=== PATIENT | male | born 1995 | race Caucasian/White ===

== ENCOUNTER 2016-05-07 19:59 | Emergency (ER) | payer OTHER ==
[2016-05-07 20:13] VITALS: BP 161/73; PULSE 94; TEMP 97.6; BMI 44.6
--- NOTE | 2016-05-07 21:55 | PDOC ---
[id number] 4d EAR PROBLEM Time Seen by Provider: 05/07/16 21:24 History Source: Patient Exam Limitations: No Limitations - History of Present Illness Initial Comments: 05/07/16 21:50 Chief complaint: Right sided throat pain with right ear pain today with chills, fever History of present illness: Patient is a 20-year-old male with no significant medical problems here today complaining of right-sided throat pain that radiates to his right ear. Patient denies any difficulty swallowing or breathing. Patient did not have an influenza vaccine. Patient also complaining of chills with fever today. Patient denies any cough, vomiting, diarrhea. She has not had any recent travel or sick contacts that he knows of. Timing/Duration: intermittent Severity: moderate Associated Symptoms: reports: fever/chills, other (sore throat rt. sided radiates to rt. ear) Past History - Past Medical History Allergies/Adverse Reactions: Allergies Allergy/AdvReac Type Severity Reaction Status Date / Time No Known Allergies Allergy Verified 05/07/16 20:10 Home Medications: Ambulatory Orders Amoxicillin - [Amoxicillin 875mg Tablet -] 875 mg PO BID #14 tab 05/07/16 - Psycho/Social/Smoking Cessation Hx Suicidal Ideation: No Smoking History: Never smoked Have you smoked in the past 12 months: No Number of Cigarettes Smoked Daily: 0 Information on smoking cessation initiated: No Hx Alcohol Use: No Drug/Substance Use Hx: No Review of Systems - Review of Systems Able to Perform ROS?: Yes Constitutional: Yes: Fever HEENTM: Yes: Ear Pain (rt), Throat Pain Respiratory: No: Symptoms reported Cardiac (ROS): No: Symptoms Reported ABD/GI: No: Symptoms Reported : No: Symptoms Reported Musculoskeletal: No: Symptoms Reported Integumentary: No: Symptoms Reported Neurological: No: Symptoms reported *Physical Exam - Vital Signs Last Vital Signs Temp Pulse Resp BP Pulse Ox 97.6 F 94 H 16 161/73 97 05/07/16 20:11 05/07/16 20:11 05/07/16 20:11 05/07/16 20:11 05/07/16 20:11 - Physical Exam General Appearance: Yes: Appropriately Dressed HEENT: positive: TMs Normal, Pharyngeal Erythema, Tonsillar Erythema (right ), TM Erythema (rt. ). negative: Tonsillar Exudate, Nasal Congestion, Rhinorrhea, Sinus Tenderness, Hearing Decreased Neck: positive: Lymphadenopathy (R). negative: Lymphadenopathy (L) Respiratory/Chest: positive: Lungs Clear, Normal Breath Sounds. negative: Chest Tender, Respiratory Distress Cardiovascular: positive: Regular Rhythm, Regular Rate, S1, S2 Integumentary: positive: Normal Color Neurologic: positive: Alert Medical Decision Making - Medical Decision Making 05/07/16 21:54 Patient is a 20-year-old male with no significant medical problems here today complaining of right-sided throat pain that radiates to his right ear. Patient denies any difficulty swallowing or breathing. Patient did not have an influenza vaccine. Patient also complaining of chills with fever today. Patient denies any cough, vomiting, diarrhea. He has not had any recent travel or sick contacts that he knows of. tonsillitis right sided pLAN: Amoxicillin 875 mg bid for 7 days follow up with ENT if briones 05/07/16 23:19 *DC/Admit/Observation/Transfer Diagnosis at time of Disposition: Tonsillitis - Discharge Dispostion Disposition: HOME Condition at time of disposition: Stable - Prescriptions Prescriptions: Amoxicillin - [Amoxicillin 875mg Tablet -] 875 mg PO BID #14 tab - Referrals Referrals: Jabier Chester MD [Primary Care Provider] - Angel Bernabe MD [Staff Physician] - - Patient Instructions Additional Instructions: Take acetaminophen as directed by dental laboratory technology teacher for pain Follow-up with ear nose and throat doctor if symptoms do not resolve Drink a lot of fluids and rest Throat culture toothbrush at the end of treatment get new one Return to emergency room if any difficulty breathing or swallowing Patient voiced understanding of discharge instructions and all questions were answered
[2016-05-07] MEDS ORDERED: AMOXICILLIN 500 MG CAPSULE (FP) PO ONE (21:59)
== END 2016-05-07 22:09 | disposition home or self-care (01) ==
LOC: JERFT 19:59
DX: J03.90 Acute tonsillitis, unspecified (principal)
CPT/HCPCS: 99281-25

== ENCOUNTER 2022-01-23 23:10 | Emergency (ER) | payer OTHER ==
[2022-01-23 23:20] VITALS: BP 128/82; PULSE 98; RESP 19; TEMP 98.3; BMI 46.0
== END 2022-01-24 00:58 | disposition home or self-care (01) ==
LOC: JER 23:10
DX: B35.4 Tinea corporis (principal); L03.311 Cellulitis of abdominal wall
CPT/HCPCS: 99281-25

== ENCOUNTER 2023-08-15 01:22 | Emergency (ER) | payer OTHER ==
[2023-08-15 01:28] VITALS: BP 128/85; RESP 18; TEMP 98.7; BMI 48.8
[2023-08-15 03:31] LABS: BASO % 0.5 % (0-2.0); EOS % 1.6 % (0-4.5); HEMATOCRIT 50.8 % (35.4-49); HEMOGLOBIN 17.2 GM/dL (11.7-16.9); LYMPH % 16.9 % (8-40); MCH 30.1 pg (25.7-33.7); MCHC 33.9 g/dl (32.0-35.9); MEAN PLT VOLUME 10.1 fl (7.5-11.1); MONO % 5.3 % (3.8-10.2); NEUT % 75.7 % (42.8-82.8); PLATELET COUNT 135 10^3/uL (134-434); RBC 5.72 M/mm3 (4.00-5.60); RDW 15.5 % (11.9-15.9); WHITE BLOOD COUNT 10.1 K/mm3 (4.0-10.0)
[2023-08-15 04:34] LABS: POTASSIUM 3.9 mmol/L (3.5-5.1)
[2023-08-15 04:36] LABS: ALBUMIN 3.4 g/dl (3.4-5.0); CALCIUM 8.9 mg/dL (8.5-10.1); MAGNESIUM 1.9 mg/dL (1.8-2.4)
[2023-08-15 04:37] LABS: BLOOD UREA NITROGEN 8.3 mg/dL (7-18)
[2023-08-15 04:40] LABS: CREATININE 0.8 mg/dL (0.55-1.3)
[2023-08-15 04:41] LABS: BILIRUBIN,TOTAL 0.2 mg/dL (0.2-1); TOT PROT 7.2 g/dl (6.4-8.2)
[2023-08-15 05:14] VITALS: PULSE 92
== END 2023-08-15 05:59 | disposition home or self-care (01) ==
LOC: JER 01:22
DX: R00.2 Palpitations (principal); R42 Dizziness and giddiness; R06.00 Dyspnea, unspecified; Z72.0 Tobacco use
CPT/HCPCS: 36415; 80053; 83735; 84484; 85025; 93005; 93010; 99284-25

== ENCOUNTER 2023-08-20 23:43 | Emergency (ER) | payer OTHER ==
[2023-08-20 23:52] VITALS: BMI 48.8
[2023-08-21 01:41] LABS: BASO % 0.5 % (0-2.0); EOS % 1.5 % (0-4.5); HEMATOCRIT 49.7 % (35.4-49); HEMOGLOBIN 16.4 GM/dL (11.7-16.9); LYMPH % 16.4 % (8-40); MCH 29.4 pg (25.7-33.7); MEAN CELL VOLUME 89.1 fl (80-96); MEAN PLT VOLUME 10.4 fl (7.5-11.1); MONO % 7.2 % (3.8-10.2); NEUT % 74.4 % (42.8-82.8); PLATELET COUNT 145 10^3/uL (134-434); RBC 5.58 M/mm3 (4.00-5.60); RDW 15.1 % (11.9-15.9); WHITE BLOOD COUNT 11.6 K/mm3 (4.0-10.0)
[2023-08-21 02:00] LABS: POTASSIUM 4.6 mmol/L (3.5-5.1)
[2023-08-21 02:03] LABS: ALBUMIN 3.3 g/dl (3.4-5.0); BLOOD UREA NITROGEN 12.8 mg/dL (7-18); CALCIUM 8.5 mg/dL (8.5-10.1)
[2023-08-21 02:06] LABS: CREATININE 0.8 mg/dL (0.55-1.3)
[2023-08-21 02:08] LABS: BILIRUBIN,TOTAL 0.6 mg/dL (0.2-1); TOT PROT 7.2 g/dl (6.4-8.2)
[2023-08-24 01:44] VITALS: BP 151/100; PULSE 82; RESP 20; TEMP 98.7
== END 2023-08-21 03:19 | disposition home or self-care (01) ==
LOC: JER 23:43
DX: R06.02 Shortness of breath (principal); R00.2 Palpitations
CPT/HCPCS: 36415; 71046-TC-FY; 80053; 85025; 85379; 93005; 93010; 99285-25